=== PATIENT | male | born 1990 | race Caucasian/White ===

== ENCOUNTER 2021-12-28 06:49 | Emergency (ER) | payer OTHER, MEDICAID, SELFPAY ==
[2021-12-28 06:59] VITALS: BP 142/65; PULSE 77; RESP 25; TEMP 37; O2SAT 100; BMI 26.6
--- NOTE | 2021-12-28 07:13 | ED_ITS ---
HPI - Back Pain/Injury General Chief Complaint: Back Pain/Injury Stated Complaint: Severe back/abd pain x a week Time Seen by Provider: 12/28/21 07:10 Source: patient and family History of Present Illness HPI Narrative: Patient is a healthy 31-year-old male who presents with left-sided back pain. He says 60 is ago he is working with his dad with sheet rock he turned quickly to try and catch it from falling which she did. He then did the exact same thing 3 days ago. He was okay yesterday but last night and this morning started having severe spasm. He has no numbness or tingling down his leg. It is not radiating around to his abdomen. He has not taken anything for pain. Related Data Previous Rx's Medication Instructions Recorded fluticasone propionate 50 0 INTRANASAL BID #16 gm 10/29/16 mcg/actuation nasal spray,suspension cyclobenzaprine 5 mg tablet 5 mg PO TID PRN #10 tab 12/28/21 Allergies Allergy/AdvReac Type Severity Reaction Status Date / Time amoxicillin Allergy Unknown Unverified 11/17/17 13:06 Review of Systems Review of Systems Narrative: GENERAL: Denies chills, fatigue, malaise, fever, sweats, travel HEENT: Denies sinus pain, ear pain, sore throat, difficulty swallowing, neck pain RESPIRATORY: Denies dyspnea, cough, wheezing, hemoptysis, sputum. CARDIOVASCULAR: Denies chest pain, palpitations, orthopnea, edema GASTROINTESTINAL: Denies nausea, vomiting, abdominal pain, diarrhea, constipation, melena. : Denies dysuria, frequency, incontinence, hematuria, urinary retention, flank pain. MUSCULOSKELETAL: See HPI SKIN: No rash, no erythema, no pruritus NEUROLOGIC: Denies weakness, dizziness, headache, numbness, change in speech, confusion PSYCHIATRIC: No concerning psychosocial issues. 12 point review of systems is negative except for those stated above and HPI Patient History Social History Smoking Status: Current some day smoker Smoking Status: Current some day smoker tobacco type: pipe alcohol intake frequency: 0-2 drinks per day Substance Use Type: does not use Exam Initial Vital Signs Initial Vital Signs: Vital Signs Temperature 98.6 F 12/28/21 06:59 Pulse Rate 77 12/28/21 06:59 Respiratory Rate 25 H 12/28/21 06:59 Blood Pressure 142/65 H 12/28/21 06:59 Pulse Oximetry 100 12/28/21 06:59 GENERAL: 31-year-old male appears in pain, he bent over the gurney on his stomach CARDIOVASCULAR: peripheral pulses in tact, cap refill <2 sec RESPIRATORY: No respiratory distress, speaks in full sentences without difficulty BACK: Left paraspinal muscle spasm. Reproducible with pain. EXTREMITIES: Normal range of motion, no clubbing or edema. Neurovascularly intact NEUROLOGICAL: Cranial nerves II through XII grossly intact. Normal gait and speech. SKIN: Warm, dry, no petechiae, no rashes or lesions. Course Orders Ordered: Discontinued Medications Diazepam (Diazepam 5 Mg Tablet) 5 mg PO NOW ONE Stop: 12/28/21 07:18 Last Admin: 12/28/21 07:31 Dose: 5 mg Documented by: ANNA Ketorolac Tromethamine (Ketorolac 30 Mg/Ml Vial) 30 mg IM NOW ONE Stop: 12/28/21 07:18 Last Admin: 12/28/21 07:32 Dose: 30 mg Documented by: ANNA Vital Signs Vital signs: Vital Signs - 8 hr 12/28/21 06:59 12/28/21 08:50 Temperature 98.6 F Pulse Rate 77 94 H Respiratory Rate 25 H 16 Blood Pressure 142/65 H 121/69 Pulse Oximetry 100 96 MDM - Back Pain/Injury MDM Narrative Medical decision making narrative: The patient has an obvious muscle spasm injury twice in the last week. He has not taken anything at home for it. He is feeling significantly better after To radol and Valium. He feels ready and able to go home at this time. Discharge Plan Departure Patient Disposition: Home Clinical Impression: Back muscle spasm Instructions: DI for Back Spasm Activity Restrictions/Additional Instructions: *You have been diagnosed with back spasm *What to do: Light activities encouraged her 2 mi walk if you are able to tolerated seems like a good choice. I would not do strenuous activity or heavy lifting. *Continue to take medications as directed Ibuprofen 800 mg every 8 hours if needed next dose due at 3:00 p.m. Flexeril 5 mg every 8 hours as needed for muscle spasm, this does cause drowsiness and sleepiness do not take while working or driving *Follow up with your primary care provider in 2-3 days or call [phone] *Return to ER if you should have increasing pain fever or any new, worsening or concerning symptoms Prescriptions: New cyclobenzaprine 5 mg tablet 5 mg PO TID PRN (Reason: muscle spasm) Qty: 10 0RF No Action fluticasone propionate 16 GM spray,suspension 0 Intranasal BID Qty: 16 0RF
[2021-12-28] MEDS: diazePAM 5 MG TABLET PO (07:31)
[2021-12-28] MEDS: KETOROLAC 30 MG/ML VIAL IM (07:32)
[2021-12-28 08:50] VITALS: BP 121/69; PULSE 94; RESP 16; O2SAT 96
== END 2021-12-28 08:50 | disposition home or self-care (01) ==
PROVIDERS: Emergency Provider Emergency Medicine
DX: M62.830 Muscle spasm of back (principal)
CPT/HCPCS: 96372; 99283; J1885

== ENCOUNTER 2025-06-15 15:27 | Emergency (ER) | payer OTHER, SELFPAY ==
[2025-06-15] VITALS (8 sets, daily range): BP systolic 135–155; BP diastolic 81–91; PULSE 93–102; RESP 17–24; TEMP 36.9; O2SAT 92–98; BMI 29.4
--- NOTE | 2025-06-15 15:37 | DI.RAD.S_ITS ---
PROCEDURE: XR CHEST 1V
--- NOTE | 2025-06-15 15:38 | ED_ITS ---
HPI - Chest Pain
--- NOTE | 2025-06-15 15:38 | ED.CHESTPAIN ---
HPI - Chest Pain General Chief Complaint: Arrhythmia/Palpitations Stated Complaint: erratic heart rate, dizzy Time Seen by Provider: 06/15/25 15:36 Source: patient Mode of arrival: Ambulatory Limitations: no limitations History of Present Illness HPI narrative: Patient is a healthy 34-year-old male presenting today with lightheadedness dizziness and variable heart rate. He just got a new watch has been recording his rate he has noticed over the last couple of weeks his heart rate varies from 35-135. He gets dizzy lightheaded but does not pass out. He denies any alcohol use or drug use. He has sometimes it is short of breath denies any recent travel. No fever chills or cough. He says this typically happens when he is at work he works at a [employer] which is very labor intensive. Related Data Previous Rx's ?Medication ?Instructions ?Recorded fluticasone propionate 50 0 intranasal BID ##16 10/29/16 mcg/actuation nasal spray,suspension cyclobenzaprine 5 mg tablet 5 mg PO TID PRN muscle spasm #10 12/28/21 tabs Allergies Allergy/AdvReac Type Severity Reaction Status Date / Time amoxicillin Allergy Unknown Verified 06/15/25 15:35 mushroom Allergy Swelling Verified 06/15/25 15:36 of Lip/Tongue/Throat Patient History Social History Smoking Status: Current some day smoker Smoking Status: Current some day smoker tobacco type: pipe alcohol intake frequency: 0-2 drinks per day Exam Initial Vital Signs Initial Vital Signs: Vital Signs Temperature 98.5 F 06/15/25 15:30 Pulse Rate 102 H 06/15/25 15:30 Respiratory Rate 20 06/15/25 15:30 Blood Pressure 148/82 H 06/15/25 15:30 Pulse Oximetry 97 06/15/25 15:30 Oxygen Delivery Method Room Air 06/15/25 15:30 GENERAL: Alert well-appearing 34-year-old male and in no acute distress. HEENT: Head atraumatic,EOMI, pupils reactive, face symmetric, moist mucous membranes CARDIOVASCULAR: Regular rate and rhythm without murmurs, rubs or gallops. RESPIRATORY: Breath sounds equal bilaterally, no wheezes rales or rhonchi. ABDOMEN: Soft, nontender. Normoactive bowel sounds all 4 quadrants. No guarding or rebound. EXTREMITIES: Normal range of motion, no clubbing or edema. Neurovascularly intact NEUROLOGICAL: Alert and oriented x4.Normal gait and speech. Cranial nerves II through XII grossly intact. SKIN: Warm, dry, no laceration, no petechiae, no rashes or lesions. Course Orders Ordered: ED Orders 06/15/25 15:37 XR chest 1V Stat EKG-12 Lead Stat 06/15/25 15:45 Complete Blood Count AUTO DIFF Stat Comprehensive Metabolic Panel Stat D Dimer Stat Lipase Stat Magnesium Stat NT-proBNP (BNP-Adult 18+) Stat TSH [Thyroid Stimulating Hormone] Stat Troponin I Stat 06/15/25 16:39 CT angio chest PE protocol Stat Discontinued Medications Aspirin (Aspirin 81 Mg Chew Tab) 324 mg PO NOW ONE Stop: 06/15/25 15:38 Last Admin: 06/15/25 15:49 Dose: 324 mg Documented By: ARNAUD Vital Signs Vital signs: Vital Signs - 8 hr 06/15/25 15:30 06/15/25 15:41 06/15/25 15:49 Temperature 98.5 F Pulse Rate 102 H 93 H Respiratory Rate 20 Blood Pressure 148/82 H 140/86 Pulse Oximetry 97 95 Oxygen Delivery Method Room Air 06/15/25 15:49 06/15/25 16:00 06/15/25 16:00 Temperature Pulse Rate 99 H 99 H Respiratory Rate 21 24 Blood Pressure 141/82 H Pulse Oximetry 92 94 Oxygen Delivery Method 06/15/25 16:30 06/15/25 16:30 06/15/25 16:57 Temperature Pulse Rate 97 H Respiratory Rate 19 Blood Pressure 139/84 151/89 H Pulse Oximetry 95 Oxygen Delivery Method 06/15/25 16:57 06/15/25 17:00 06/15/25 17:00 Temperature Pulse Rate 100 H 101 H Respiratory Rate 17 19 Blood Pressure 155/91 H Pulse Oximetry 97 98 Oxygen Delivery Method 06/15/25 18:00 Temperature Pulse Rate Respiratory Rate Blood Pressure 135/81 Pulse Oximetry Oxygen Delivery Method MDM - Chest Pain Lab Data 06/15/25 15:45 06/15/25 15:45 Labs: Lab Results 06/15/25 Range/Units 15:45 WBC 7.0 (4.5-11.0) X10^3/uL RBC 4.57 (4.5-5.9) X10^6/uL Hgb 14.5 (13.5-17.5) g/dL Hct 40.9 L (41-53) % MCV 89.3 (80-100) fL MCH 31.8 (26-34) PG MCHC 35.6 (30-36) % RDW 12.4 (11.6-14.8) % Plt Count 293 (150-400) X10^3/uL Neut % (Auto) 60.3 (50-75) % Lymph % (Auto) 29.1 (25-40) % Carlton % (Auto) 8.5 (3-14) % Eos % (Auto) 1.4 L (2-4) % Baso % (Auto) 0.7 (0-2) % Neut # (Auto) 4200 (8985-3007) /uL Lymph # (Auto) 2000 (7153-2357) /uL Carlton # (Auto) 600 (0-900) /uL Eos # (Auto) 100 (0-450) /uL Baso # (Auto) 0 (0-100) /uL D-Dimer 859 H (<500) ng/ml Sodium 135 L (137-145) mmol/L Potassium 3.9 (3.4-5.1) mmol/L Chloride 101 (98-107) mmol/L Carbon Dioxide 25 (22-32) mmol/L BUN 13 (9-20) mg/dL Creatinine 0.82 (0.66-1.25) mg/dL Estimated GFR > 60 (>60) mL/min BUN/Creatinine Ratio 15.9 (6-22) Glucose 109 H (70-99) mg/dL Calcium 9.1 (8.4-10.2) mg/dL Magnesium 2.1 (1.6-2.3) mg/dL Total Bilirubin 0.5 (0.2-1.3) mg/dL AST 33 (17-59) IU/L ALT 30 (<50) IU/L Alkaline Phosphatase 72 (38-126) U/L Troponin I < 0.012 (0.01-0.034) ng/mL NT-Pro-B Natriuret Pep < 20 (<125) pg/mL Total Protein 8.2 (6.3-8.2) g/dL Albumin 4.8 (3.5-5.0) g/dL Globulin 3.4 (1.7-4.1) g/dL Albumin/Globulin Ratio 1.4 (1.0-2.8) Lipase 119 (23-300) U/L TSH 1.12 (0.47-4.68) uIU/mL Imaging Data CT scan - chest: Radiologist's Impression: PROCEDURE: CT ANGIO CHEST PE PROTOCOL INDICATIONS: elevated dimer TECHNIQUE: After the administration of intravenous contrast, 2 mm thick sections acquired from the pulmonary apices to the posterior costophrenic angles. 3-dimensional maximum intensity projection (MIP) coronal and sagittal reformats were then acquired through the thorax. For radiation dose reduction, the following was used: automated exposure control, adjustment of mA and/or kV according to patient size. COMPARISON: None. FINDINGS: Image quality: Diagnostic. Pulmonary arteries: Pulmonary arteries are normal in size, and demonstrate no intraluminal filling defects to suggest central pulmonary embolism. Lower Neck: No enlarged lymph nodes. Thyroid: No thyroid nodules which require sonographic follow up, per consensus guidelines. Axillae: No enlarged lymph nodes. Chest Wall: Unremarkable. Bones: Unremarkable. Lungs and Pleura: No pneumothorax or pleural effusions. No consolidation or suspicious nodules. Heart: Heart size is normal. No pericardial effusion. Thoracic Vessels: No aortic aneurysm. Mediastinum and Shakila: No enlarged lymph nodes. Esophagus: No wall thickening. No hiatal hernia. Upper Abdomen: Visualized upper abdomen solid organs and bowel loops appear normal. IMPRESSION: No pulmonary embolus. No acute cardiopulmonary process. Dictated by: Yonathan Chapman M.D. on 06/15/2025 at 17:18 Chest x-ray: Radiologist's Impression: PROCEDURE: XR CHEST 1V INDICATIONS: short of breath TECHNIQUE: One view of the chest was acquired. COMPARISON: None. FINDINGS: Surgical changes and devices: None. Lungs and pleura: Lungs are clear. No pleural effusions or pneumothorax. Mediastinum: Mediastinal contours appear normal. Heart size is normal. Bones and chest wall: No suspicious bony lesions. Overlying soft tissues appear unremarkable. IMPRESSION: No acute pulmonary process. Dictated by: Ellie Fajardo M.D. on 06/15/2025 at 16:09 ECG Data Attestation: I personally reviewed and interpreted this ECG as follows: Prior ECG tracings: available for review Interpretation: Normal sinus rhythm rate 99 OR interval 150 QRS [address] changes T-wave inversion noted in lead 3 only no S-wave no Q-waves MDM Narrative Medical decision making narrative: MDM CC: Heart palpitations Complicating co-morbidities: Healthy male Data collected from: Patient Medical records reviewed: None Differential considered: Arrhythmia AV kelli block pulmonary embolism Exam documented above, pertinent findings include: Alert well-appearing 34-year-old male heart rate is slightly fast but regular Lab Test results independently reviewed as above. Pertinent findings: CBC no leukocytosis no anemia CMP sodium is 135 no electrolyte abnormality glucose 109 creatinine 0.8 Troponin negative, BNP negative D-dimer is 859 Independently reviewed EKG as above Sinus rhythm no arrhythmia no cardiac greta AV eklli block Imaging studies independently reviewed: Chest x-ray no acute cardiopulmonary process Consultations: None Treatments: None Re-evaluations: [Patient remains in sinus rhythm on the monitor Discussion: Patient on the monitor remains in sinus rhythm. Blood work is overall reassuring however D-dimer is slightly elevated. We will go ahead and get a CT angio. CT angio negative. Patient remains in sinus rhythm significantly tachycardic or bradycardic he is asymptomatic. At this time recommend outpatient monitoring with a ZIO patch and return to the ED as needed. Discharge Plan Departure Patient Disposition: Home Clinical Impression: Palpitations Instructions: Arrhythmias Activity Restrictions/Additional Instructions: *You have been diagnosed with palpitations *What to do: At this time you will need a ZIO patch which is ordered by primary care provider. Please continue to wear your watch it does seem to be accurate. Also please pay attention to your symptoms if you are feeling dizzy or lightheaded or if you pass out return to emergency department immediately *Continue to take medications as directed *Follow up with your primary care provider in 2-3 days or call [phone] *Return to ER if you should have increasing dizziness lightheadedness shortness of breath or any new, worsening or concerning symptoms Prescriptions: No Action fluticasone propionate 16 GM spray,suspension 0 Intranasal BID Qty: 16 0RF cyclobenzaprine 5 mg tablet 5 mg PO TID PRN (Reason: muscle spasm) Qty: 10 0RF Referrals: Miscellaneous,Doctor, [Primary Care Provider, Medical] Stand Alone Forms: Patient Portal/API
--- NOTE | 2025-06-15 15:44 | EKG_ITS ---
[facility]
[2025-06-15] MEDS: ASPIRIN 81 MG CHEW TAB 324 MG PO (15:49)
[2025-06-15 16:00] LABS: Add Manual Diff / Slide Review NO; Hematocrit 40.9 % (41-53); Hemoglobin 14.5 g/dL (13.5-17.5); Lymphocytes Absolute Auto 2000 /uL (1100-4500); Mean Corpuscular HGB Conc 35.6 % (30-36); Mean Corpuscular Hemoglobin 31.8 PG (26-34); Mean Corpuscular Volume 89.3 fL (80-100); Platelet Count 293 X10^3/uL (150-400)
[2025-06-15 16:15] LABS: Alanine Aminotransferase 30 IU/L (<50); Albumin 4.8 g/dL (3.5-5.0); Albumin Globulin Ratio 1.4 (1.0-2.8); Alkaline Phosphatase 72 U/L (38-126); Blood Urea Nitrogen 13 mg/dL (9-20); Calcium 9.1 mg/dL (8.4-10.2); Carbon Dioxide 25 mmol/L (22-32); Chloride 101 mmol/L (98-107); Estimated Glomerular Filt Rate > 60 mL/min (>60); Globulin 3.4 g/dL (1.7-4.1); Glucose 109 mg/dL (70-99); HEMOLYSIS 46 (0-50); Lipase 119 U/L (23-300); Magnesium 2.1 mg/dL (1.6-2.3); Potassium 3.9 mmol/L (3.4-5.1); Sodium 135 mmol/L (137-145); Total Protein 8.2 g/dL (6.3-8.2)
[2025-06-15 16:27] LABS: NT-proBNP (BNP-Adult 18+) < 20 pg/mL (<125); Troponin I < 0.012 ng/mL (0.01-0.034)
--- NOTE | 2025-06-15 16:39 | DI.CT.S_ITS ---
PROCEDURE: CT ANGIO CHEST PE PROTOCOL
[2025-06-15 16:47] LABS: Thyroid Stimulating Hormone 1.12 uIU/mL (0.47-4.68)
== END 2025-06-15 17:58 | disposition home or self-care (01) ==
PROVIDERS: Emergency Provider Emergency Medicine
DX: R00.2 Palpitations (principal)
CPT/HCPCS: 36415; 71045; 71275; 80053; 83690; 83735; 83880; 84443; 84484; 85025; 85379; 93005; 99284; Q9967